=== PATIENT | male | born 1995 | race Caucasian/White ===

== ENCOUNTER 2019-01-10 17:27 | Emergency (ER) | payer MEDICAID ==
[~2019-01-10] VITALS: Ht 175.3 cm; Wt 79.5 kg
[~2019-01-10 17:27] MED LIST: LEVO500 PO
[2019-01-10] MEDS ORDERED: LIDOCAINE/PF 1% 5 ML VIAL INJ ONE (20:00)
[2019-01-10] MEDS ORDERED: CEPHALEXIN MONOHYDRATE 500 MG CAPSULE PO ONE (20:00)
[2019-01-10] MEDS ORDERED: SULFAMETHOX/TRIMETH DS 800-160 MG/TABLET PO ONE (20:00)
[2019-01-10 20:27] VITALS: BP 134/81
== END 2019-01-10 21:05 | disposition home or self-care (01) ==
LOC: EMS 17:29
DX: R22.2 Localized swelling, mass and lump, trunk (principal)
CPT/HCPCS: 10060; 99284; J2001